=== PATIENT | female | born 1985 | race Caucasian/White ===

== ENCOUNTER 2018-01-27 20:24 | Inpatient (IN) | payer SELFPAY ==
[2018-01-28] MEDS ORDERED: PITOCin/NS 20 UNIT/1000ML DRIP 20 UNITS/1,000 ML BAG IV SCH (03:00)
[2018-01-28] MEDS ORDERED: LACTATED RINGERS 1,000 ML IV SCH (03:00)
[2018-01-28] MEDS ORDERED: PITOCin/NS 30 UNIT/500ML 30 UNITS/500 ML BAG IV SCH (05:00)
[2018-01-28] MEDS ORDERED: SUBLIMAZE IV PRN (06:43)
[2018-01-28] MEDS ORDERED: MINERAL OIL PO PRN (06:43)
[2018-01-28] MEDS ORDERED: XYLOCAINE 2% INFILTRATI ONE (06:43)
[2018-01-28] MEDS ORDERED: BRETHINE SUB-Q PRN (06:43)
[2018-01-28] MEDS ORDERED: BRETHINE IVP PRN (06:43)
[2018-01-28] MEDS ORDERED: STADOL IV PRN (06:43)
[2018-01-28 08:24] LABS: Hematocrit 38.7 % (30.3-42.9); Hemoglobin 12.9 gm/dl (10.1-14.3); Mean Corpuscular HGB Conc 33 % (30-34); Mean Corpuscular Hemoglobin 31 pg (28-32); Mean Corpuscular Volume 93 fl (79-97); Red Blood Count 4.19 M/mm3 (3.65-5.03); Red Cell Distribution Width 17.1 % (13.2-15.2)
[2018-01-28 08:36] LABS: Platelet Count 79 K/mm3 (140-440)
--- NOTE | 2018-01-28 09:27 | History and Physical Report ---
History of Present Illness Date of examination: 01/28/18 Date of admission: 01/27/18 21:04 Chief complaint: Induction of labor History of present illness: 32 yo Fe , ANA 01/19/2018 ([place]) 41 weeks2 days, O positive, Rubella Immune, GBS Negative presents for IOL for postdates. Pt initiated late care with [facility] at 18w2d. records available and reviewed. course uneventful. Pt has history of Thrombocytopenia (platelets 98 on 12/25/17). 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 denies: smoking, alcohol abuse, prescription drug abuse, IV drug use - Obstetrical History Expected Date of Delivery: 01/19/18 Actual Gestation: 41 Week(s) 2 Day(s) : 5 Para: 4 Hx # Term Pregnancies: 4 Spontaneous Abortions: 0 Induced : 0 Number of Living Children: 4 #1 Infant Gender: Male year: 2,[birth year] Birthweight: 3.629 kg Method of Delivery: Vaginal Gestational age at delivery: 40 Complications: none #2 Gender: Female year: 2,[birth year] Birthweight: 3.629 kg Method of Delivery: Vaginal Gestational age at delivery: 40 Complications: none #3 Gender: Male year: 2,007 Birthweight: 3.459 kg Method of Delivery: Vaginal Gestational age at delivery: 40 Complications: none #4 Infant Gender: Female year: 2,013 Birthweight: 3.317 kg Method of Delivery: Vaginal Gestational age at delivery: 40 Complications: none Medications and Allergies Allergies Allergy/AdvReac Type Severity Reaction Status Date / Time No Known Allergies Allergy Unverified 01/27/18 23:43 Active Meds: Active Medications Butorphanol Tartrate (Stadol) 2 mg IV Q2H PRN PRN Reason: Pain , Severe (7-10) Ephedrine Sulfate (Ephedrine Sulfate) 10 mg IV Q2M PRN PRN Reason: Hypotension Fentanyl (Sublimaze) 100 mcg IV Q2H PRN PRN Reason: Labor Pain Last Admin: 01/28/18 07:45 Dose: 100 mcg Lactated Ringer's (Lactated Ringers) 1,000 mls @ 125 mls/hr IV DIRECT CRYSTAL Last Admin: 01/28/18 05:00 Dose: 125 mls/hr Oxytocin/Sodium Chloride (Pitocin/Ns 20 Unit/1000ml Drip) 20 units in 1,000 mls @ 125 mls/hr IV DIRECT CRYSTAL Oxytocin/Sodium Chloride (Pitocin/Ns 30 Unit/500ml) 30 units in 500 mls @ 2 mls /hr IV TITR CRYSTAL; Protocol Last Titration: 01/28/18 06:00 Dose: 6 mls/hr, 6 mls/hr Mineral Oil (Mineral Oil) 30 ml PO QHS PRN PRN Reason: Constipation Terbutaline Sulfate (Brethine) 0.25 mg SUB-Q ONCE PRN PRN Reason: Hyperstimulation/Hypertonicity Terbutaline Sulfate (Brethine) 0.25 mg IVP ONCE PRN PRN Reason: Hyperstimulation/Hypertonicity Review of Systems Cardiovascular: no chest pain, no shortness of breath Respiratory: no shortness of breath Breasts: normal Gastrointestinal: no abdominal pain, no nausea, no vomiting, no diarrhea, no constipation Genitourinary: normal appearance, contractions (IRREG), no vaginal bleeding, no leakage of fluid, no dysuria, no genital sores Integumentary: no rash, no sores, no lesions - Vital Signs Vital signs: Vital Signs Temp Pulse Resp BP 98.3 F 78 16 138/80 01/27/18 22:07 01/27/18 22:07 01/27/18 22:07 01/27/18 22:07 Temp Pulse Resp BP Pulse Ox 97.9 F 77 22 115/56 01/28/18 07:20 01/28/18 09:14 01/28/18 08:15 01/28/18 09:14 - Physical Exam Breasts: Positive: normal Cardiovascular: Regular rate, Normal S1, Normal S2, No murmurs Lungs: Positive: Clear to auscultation, Normal air movement Abdomen: Positive: normal appearance, soft, normal bowel sounds. Negative: distention Genitourinary (Female): Positive: normal external genitalia, normal perenium Vulva: both: normal Vagina: Positive: normal moisture Uterus: Positive: enlarged (Gravid) Anus/Rectum: Positive: normal perianal skin Extremities: Positive: normal Deep Tendon Reflex Grade: Normal +2 - Obstetrical Uterine Contraction Monitor Mode: External Cervical Dilatation: 4 (On Admission) Uterine Contraction Pattern: Irregular Uterine Tone Measurement Phase: Resting Uterine Contraction Intensity: Moderate Results Result Diagrams: 01/28/18 07:57 Abnormal lab results 01/28/18 Range/Units 07:57 WBC 11.1 H (4.5-11.0) K/mm3 RDW 17.1 H (13.2-15.2) % Plt Count 79 L (140-440) K/mm3 All other labs normal. Assessment and Plan A: Postterm IUP at 41w2d GBS Negative Category 1 tracing Thrombocytopenia P: Admit to L&d Routine Labor orders Pitocin IOL Anticipate
--- NOTE | 2018-01-28 09:44 | Procedure Note ---
OB Delivery Note - Delivery Date of Delivery: 01/28/18 (9:02) Surgeon: TEDDY EAST (DIANE) Estimated blood loss: 200cc - Vaginal Delivery presentation: vertex Delivery position: OA Intrapartum events: none Delivery induction: oxytocin Delivery monitor: external FHT, external uterine Route of delivery: (9:02) Delivery placenta: spontaneous (9:12) Delivery cord: nuchal cord (x1, loose, delivered intact), 3 umbilical vessels Episiotomy: none Delivery laceration: none Anesthesia: intravenous Delivery comments: viable female , TIANNA position, loose nuchal cord x1 delivered intact via somersault maneuver over intact perineum at 09:02. Spontaneous lusty cry, infant to mothers abdomen for [id number]. Delayed cord clamping, then cut by FOB. Cord blood collected per hospital protocol. Spontaneous otoole delivery of intact placenta, 3VC, at 09:12. FF@U-2. scant lochia. No tears or lacerations. EBL 200ml. Infant and mother left in stable condition in L&D. - A at 1 minute: 8 at 5 minutes: 9 Gender: Female (3584 grams, 7lbs 14oz, 20.5")
[2018-01-28] MEDS ORDERED: NORCO 5/325 PO PRN (10:00)
[2018-01-28] MEDS ORDERED: PHENERGAN PO PRN (10:00)
[2018-01-28] MEDS ORDERED: TUCKS PAD TP PRN (10:00)
[2018-01-28] MEDS ORDERED: DULCOLAX PR PRN (10:00)
[2018-01-28] MEDS ORDERED: TYLENOL PO PRN (10:00)
[2018-01-28] MEDS ORDERED: SODIUM CHLORIDE FLUSH SYRINGE 10 ML IV PRN (10:00)
[2018-01-28] MEDS ORDERED: ZOFRAN IV PRN (10:30)
[2018-01-28] MEDS ORDERED: LANSINOH TP PRN (10:30)
[2018-01-28] MEDS ORDERED: BENADRYL PO PRN (10:30)
[2018-01-28] MEDS ORDERED: MOTRIN PO ONE (10:36)
[2018-01-28] MEDS: MOTRIN PO SCH ×2 (10:36→18:13)
[2018-01-28] MEDS ORDERED: MILK OF MAGNESIA PO PRN (22:00)
[2018-01-28 23:25] LABS: Hematocrit 35.6 % (30.3-42.9); Hemoglobin 11.8 gm/dl (10.1-14.3)
[2018-01-29] MEDS: MOTRIN PO SCH ×2 (05:28→12:15)
[2018-01-29] MEDS ORDERED: BOOSTRIX IM ONE (06:00)
--- NOTE | 2018-01-29 09:30 | Progress Note ---
Assessment and Plan - Patient Problems (1) Status post normal vaginal delivery Current Visit: Yes Status: Acute Plan to address problem: PPD 1 - stable Discharge to home today Follow up as needed for heavy bleeding or in 6 weeks for exam at [facility] (2) Thrombocytopenia affecting Current Visit: Yes Status: Acute Plan to address problem: Platelet count 79 Asymptomatic Subjective - Subjective Date of service: 01/29/18 Principal diagnosis: PPD #1, s/p Patient reports: appetite normal, voiding normally, pain well controlled, ambulating normally Millry: doing well, nursing well Objective - Vital Signs Latest vital signs: Vital Signs Temp Pulse Resp BP BP Pulse Ox 01/29/18 07:52 97.7 F 63 20 93/54 97 01/29/18 05:28 18 01/29/18 00:30 98.7 F 78 18 102/78 01/29/18 00:09 18 01/28/18 19:30 98.6 F 77 18 101/78 01/28/18 16:12 98.6 F 76 18 103/64 01/28/18 11:36 22 01/28/18 10:55 98.1 F 66 20 110/57 97 01/28/18 10:50 98.4 F 18 01/28/18 10:36 22 01/28/18 10:19 76 115/58 01/28/18 09:59 94 H 116/60 01/28/18 09:44 76 107/59 01/28/18 09:29 76 106/66 Intake and Output 01/28/18 01/29/18 01/29/18 23:59 07:59 15:59 Intake Total 0 300 Output Total 300 Balance -300 300 Intake: Oral 0 Intake, Free Water 300 Output: Urine 300 Void 300 Other: Total, Intake Amount 0 Total, Output Amount 300 - Exam Abdomen: Present: normal appearance, soft Vulva: both: normal Uterus: Present: normal, firm, fundal height at umbilicus Extremities: Present: normal Comments: Scant lochia
--- NOTE | 2018-01-29 09:34 | Discharge Summary ---
Providers - Providers Date of Admission: 01/27/18 21:04 Date of discharge: 01/29/18 Attending physician: MARLA SHAH MD Primary care physician: MARLA SHAH MD Hospitalization Reason for admission: induction of labor, IUP at term Delivery: Episiotomy: none Laceration: none Other procedures: none Discharge diagnosis: IUP at term delivered baby: female Hospital course: Complicated by thrombocytopenia - asymptomatic Condition at discharge: Stable Disposition: CO-01 TO HOME OR SELFCARE - Discharge Diagnoses (1) Status post normal vaginal delivery Status: Acute (2) Thrombocytopenia affecting Status: Acute Comment: Asymptomatic Plan - Provider Discharge Summary Activity: routine, no sex for 6 weeks, no heavy lifting 4 weeks, no strenuous exercise Diet: routine Instructions: routine Additional instructions: [] Smoking cessation referral if applicable(refer to patient education folder for contact #) [] Refer to [facility]'s [facility] Booklet Call your doctor immediately for: * Fever > 100.5 * Heavy vaginal bleeding ( >1 pad per hour) * Severe persistent headache * Shortness of breath * Reddened, hot, painful area to leg or breast * Drainage or odor from incision. * Keep incision clean and dry at all times and follow doctor's instructions regarding bathing/showering - Follow up plan Follow up: MARLA SHAH MD [Primary Care Provider] - 6 Weeks (Follow up as needed for heavy bleeding or in 6 weeks for exam at [facility])
[2018-01-29 16:59] VITALS: BP 127/63
== END 2018-01-29 16:50 | disposition home or self-care (01) | DRG 775 ==
LOC: TRG 20:24 → LD 21:04 → OB 01-28 11:03
PROVIDERS: ADMIT Obstetrics & Gynecology; ATTEND Obstetrics & Gynecology
PROC: 10E0XZZ Delivery of Products of Conception, External Approach (ICD-10-PCS; principal; 2018-01-28)
PROC: 3E033VJ Introduction of Other Hormone into Peripheral Vein, Percutaneous Approach (ICD-10-PCS; 2018-01-28)
DX: O69.81X0 Labor and delivery complicated by cord around neck, without compression, not applicable or unspecified (principal); O99.12 Other diseases of the blood and blood-forming organs and certain disorders involving the immune mechanism complicating childbirth; D69.6 Thrombocytopenia, unspecified; Z3A.41 41 weeks gestation of pregnancy; Z37.0 Single live birth
CPT/HCPCS: 36415; 85014; 85018; 85027; 86592; 86850; 86900; 86901; 90471; 99211; G0463; J2590; J3010; J7120